=== PATIENT | female | born 2000 | race Caucasian/White ===

== ENCOUNTER 2020-06-28 21:25 | Emergency (ER) | payer BC ==
[~2020-06-28] VITALS: Ht 170.2 cm; Wt 59.1 kg
[2020-06-28 22:00] VITALS: BP 108/65; PULSE 82
== END 2020-06-28 22:00 | disposition home or self-care (01) ==
LOC: COL.ER 21:25
DX: S61.012A Laceration without foreign body of left thumb without damage to nail, initial encounter (principal); W26.0XXA Contact with knife, initial encounter